=== PATIENT | female | born 1950 | race Caucasian/White ===

== ENCOUNTER 2016-04-10 09:34 | Outpatient (CLI) | payer OTHER ==
[2014-06-28 11:12] VITALS: BP 162/80
[2016-04-10 10:28] LABS: eGFR (African) > 60; eGFR (Non-African) > 60
== END 2016-04-10 09:35 ==
LOC: CARD 09:34
PROVIDERS: ATTEND Internal Medicine Cardiovascular Disease
DX: I48.91 Unspecified atrial fibrillation (principal)
CPT/HCPCS: 36415; 80048; G0463

== ENCOUNTER 2016-10-23 14:16 | Outpatient (CLI) | payer OTHER ==
[2014-06-28 11:12] VITALS: BP 162/80
== END 2016-10-23 14:17 ==
LOC: POD 14:16
PROVIDERS: ATTEND Podiatrist
DX: B35.1 Tinea unguium (principal); M79.674 Pain in right toe(s); M79.675 Pain in left toe(s)
CPT/HCPCS: 11721; G0463

== ENCOUNTER 2016-11-27 10:51 | Outpatient (CLI) | payer OTHER ==
[2014-06-28 11:12] VITALS: BP 162/80
[2016-11-27 12:12] LABS: BASOPHILS % 0.7 (0.0-1.5); EOSINOPHILS % 4.4 % (0.0-6.8); MEAN CORPUSCULAR HEMOGLOBIN 28.7 pg (28.0-34.0); MEAN CORPUSCULAR VOLUME 92.9 fl (80.0-100.0); MONOCYTES % 5.1 % (0.0-11.0); NEUTROPHILS # 4.2 # k/uL (1.4-7.7)
[2016-11-27 13:04] LABS: eGFR (African) > 60; eGFR (Non-African) > 60
== END 2016-11-27 10:52 ==
LOC: CARD 10:51
PROVIDERS: ATTEND Internal Medicine Cardiovascular Disease
DX: I10 Essential (primary) hypertension (principal); I48.91 Unspecified atrial fibrillation; I50.9 Heart failure, unspecified
CPT/HCPCS: 36415; 80053; 85025; G0463

== ENCOUNTER 2017-01-22 14:43 | Outpatient (CLI) | payer OTHER ==
[2014-06-28 11:12] VITALS: BP 162/80
== END 2017-01-22 14:44 ==
LOC: CARD 14:43
PROVIDERS: ATTEND Internal Medicine Cardiovascular Disease
DX: I48.91 Unspecified atrial fibrillation (principal); I10 Essential (primary) hypertension; E78.5 Hyperlipidemia, unspecified; E11.9 Type 2 diabetes mellitus without complications
CPT/HCPCS: G0463

== ENCOUNTER 2017-02-25 16:17 | Outpatient (CLI) | payer OTHER ==
[2014-06-28 11:12] VITALS: BP 162/80
[2017-02-25 17:02] LABS: eGFR (African) > 60; eGFR (Non-African) > 60
--- NOTE | 2017-02-25 18:34 | Diagnostic Imaging Report ---
[facility] [id number] [facility].[address] [id number] Report Submission Date: Feb 25, 2017 4:56:15 PM [employer] Patient Study Name: BELÉN HARGROVE Date: Feb 25, 2017 4:34:32 PM [employer] Modality Type: CR Gender: F Description: LOWER EXTREMITY : 52 Institution: [facility] Physician: CHRISTINE JUSTICE Examination: Plain film foot History: Injury. Findings: 3 views of the foot demonstrates diffuse osteopenia. Extensive articular degenerative changes. No evidence for displaced fracture line. Interosseous calcifications 3rd and 4th digits. Calcaneal spurs. No soft tissue abnormality. Impression: Extensive degenerative changes. No evidence for displaced fracture. Electronically signed on Feb 25, 2017 4:56:15 PM [employer] by: Harjinder NELSON
== END 2017-02-25 16:18 ==
LOC: LAB 16:17
PROVIDERS: ATTEND Family Medicine
DX: E11.9 Type 2 diabetes mellitus without complications (principal); M79.671 Pain in right foot
CPT/HCPCS: 36415; 73630; 80053; 80061; 83036

== ENCOUNTER 2017-03-26 14:32 | Outpatient (CLI) | payer OTHER ==
[2014-06-28 11:12] VITALS: BP 162/80
== END 2017-03-26 14:33 ==
LOC: POD 14:32
PROVIDERS: ATTEND Podiatrist
DX: B35.1 Tinea unguium (principal); M79.674 Pain in right toe(s); M79.675 Pain in left toe(s)
CPT/HCPCS: 11721; G0463

== ENCOUNTER 2017-06-25 13:41 | Outpatient (CLI) | payer OTHER ==
[2014-06-28 11:12] VITALS: BP 162/80
== END 2017-06-25 13:42 ==
LOC: POD 13:41
PROVIDERS: ATTEND Podiatrist
DX: B35.1 Tinea unguium (principal); M79.674 Pain in right toe(s); M79.675 Pain in left toe(s)
CPT/HCPCS: 11721; G0463

== ENCOUNTER 2017-07-16 11:50 | Outpatient (CLI) | payer OTHER ==
[2014-06-28 11:12] VITALS: BP 162/80
== END 2017-07-16 11:52 ==
LOC: CARD 11:50
PROVIDERS: ATTEND Internal Medicine Cardiovascular Disease
DX: I50.9 Heart failure, unspecified (principal); I48.91 Unspecified atrial fibrillation; I10 Essential (primary) hypertension; E78.5 Hyperlipidemia, unspecified; E11.9 Type 2 diabetes mellitus without complications; E66.9 Obesity, unspecified; G47.30 Sleep apnea, unspecified
CPT/HCPCS: G0463

== ENCOUNTER 2017-09-24 13:01 | Outpatient (CLI) | payer OTHER ==
[2014-06-28 11:12] VITALS: BP 162/80
== END 2017-09-24 13:02 ==
LOC: POD 13:01
PROVIDERS: ATTEND Podiatrist
DX: B35.1 Tinea unguium (principal); M79.674 Pain in right toe(s); M79.675 Pain in left toe(s)
CPT/HCPCS: 11721; G0463

== ENCOUNTER 2017-10-22 11:06 | Outpatient (CLI) | payer OTHER ==
[2014-06-28 11:12] VITALS: BP 162/80
== END 2017-10-22 11:11 ==
LOC: CARD 11:06
PROVIDERS: ATTEND Internal Medicine Cardiovascular Disease
DX: I50.9 Heart failure, unspecified (principal); I48.91 Unspecified atrial fibrillation; I10 Essential (primary) hypertension; E78.5 Hyperlipidemia, unspecified; E11.9 Type 2 diabetes mellitus without complications; E66.9 Obesity, unspecified; G47.30 Sleep apnea, unspecified
CPT/HCPCS: G0463

== ENCOUNTER 2018-01-22 09:46 | Outpatient (CLI) | payer OTHER ==
[2014-06-28 11:12] VITALS: BP 162/80
[2018-01-22 11:22] LABS: eGFR (Non-African) > 60
== END 2018-01-22 09:48 ==
LOC: LAB 09:46
PROVIDERS: ATTEND Family Medicine
DX: E11.628 Type 2 diabetes mellitus with other skin complications (principal)
CPT/HCPCS: 80053; 80061; 83036

== ENCOUNTER 2018-10-02 16:08 | Outpatient (CLI) | payer OTHER ==
[2014-06-28 11:12] VITALS: BP 162/80
== END 2018-10-02 16:10 ==
LOC: LAB 16:08
PROVIDERS: ATTEND Family Medicine
DX: E11.628 Type 2 diabetes mellitus with other skin complications (principal)
CPT/HCPCS: 36415; 83036; 85610